=== PATIENT | female | born 1945 | race Caucasian/White ===

== ENCOUNTER → 2017-09-11 | Outpatient (CLI) | payer MEDICARE ==
[~2017-09-11] VITALS: Wt 60.9 kg
[~2017-09-11] MED LIST: MUCINEX 60600 MG/TA1 PO; PROAIR HFA0.09 MG/AC IH
[2017-09-11 15:11] LABS: HEMATOCRIT 48.1 % (37.0-47.0); HEMOGLOBIN 15.4 g/dL (12.5-16.0); MEAN CELL VOLUME 93 fl (78-100); MEAN CORPUSCULAR HEMOGLOBIN 30 pg (27-31); MEAN CORPUSCULAR HGB CONC 32 g/dL (33-37); MEAN PLATELET VOLUME 10.5 fl (7.4-10.4); PLATELET COUNT 198 K/mm3 (130-400); RED BLOOD COUNT 5.19 M/mm3 (4.10-5.30); RED CELL DISTRIBUTION WIDTH 14.4 % (11.5-14.5); WHITE BLOOD COUNT 4.1 K/mm3 (4.8-10.8)
[2017-09-11 15:22] LABS: D-DIMER 0.23 mg/L FEU (0.15-0.50)
[2017-09-11 15:34] LABS: LYMPHOCYTE 20 % (20-51); MONOCYTE 15 % (3-10); NEUTROPHILS 65 % (42-75)
== END ==
LOC: AMSURD 14:39
PROVIDERS: Nurse Practitioner Family
DX: R06.02 Shortness of breath (principal); R09.02 Hypoxemia; R00.0 Tachycardia, unspecified